=== PATIENT | male | born 1990 | race Caucasian/White ===

== ENCOUNTER 2023-04-11 14:23 | Emergency (ER) | payer OTHER, SELFPAY ==
--- NOTE | ~2023-04-11 | XR_ITS ---
XR foot LT min 3V 04/11/2023 14:51 Indication: 4 views left foot Procedure: No prior studies for comparison. Comparison: No prior studies for comparison. Findings: There is an acute nondisplaced fifth metatarsal fracture. There is a healing fourth metatar vanna fracture with callus formation. Lisfranc joint intact. Mild lateral soft tissue swelling. Impression: 1: Acute nondisplaced midshaft fracture left fifth metatarsal. 2: Healing fourth metatarsal shaft fracture. Reviewed, dictated and finalized at location B. [employer] Impression: 1: Acute nondisplaced midshaft fracture left fifth metatarsal. 2: Healing fourth metatarsal shaft fracture.
[2023-04-11 14:34] VITALS: BP 117/75; PULSE 91; RESP 16; TEMP 36.3; O2SAT 97
--- NOTE | 2023-04-11 14:53 | ED.LOWEXIN ---
HPI - Extremity Injury (Lower) General Chief Complaint: Extremity Injury, Lower Stated Complaint: left foot pain Source: patient Mode of arrival: ambulatory Limitations: no limitations History of Present Illness HPI Narrative: 33-year-old male presents to [facility] with complaint of left foot pain and swelling this started 2 days ago. Patient states his worsening. Patient states broke foot last September, but has not had any problems since November. patient denies new injury. Related Data Home Medications Medication Instructions Recorded Confirmed atorvastatin 80 mg tablet mg 04/11/23 carvedilol 25 mg tablet mg 04/11/23 empagliflozin 25 mg tablet mg 04/11/23 (Jardiance) lisinopril 20 tablet 04/11/23 mg-hydrochlorothiazide 12.5 mg tablet semaglutide 0.25 mg or 0.5 mg (2 mg subcut 04/11/23 mg/1.5 mL) subcutaneous pen injector Allergies Allergy/AdvReac Type Severity Reaction Status Date / Time No Known Allergies Allergy Verified 04/11/23 14:26 Review of Systems Constitutional: Constitutional: Reports no additional constitutional complaints, Denies body ache(s), Denies chills, Denies fatigue, Denies fever(s) and Denies headache(s) Eyes: Eyes: Reports no additional eye complaints and Denies blurry vision ENT: Reports system reviewed and no additional complaints, except as documented, Denies vertigo, Denies dizziness, Denies ear discharge, Denies otalgia, Denies facial pain, Denies headache(s), Denies nasal congestion, Denies nasal discharge, Denies sinus pain, Denies sinus pressure and Denies sore throat Cardiovascular: Cardiovascular: Reports no additional cardiovascular complaints, Denies chest pain, Denies chest pain at rest, Denies rapid heart rate and Denies dyspnea Respiratory: Respiratory: Reports no additional respiratory complaints, Denies chest congestion, Denies cough, Denies pain on inspiration, Denies pain with cough and Denies dyspnea Gastrointestinal: Gastrointestinal: Denies abdominal pain, Denies diarrhea, Denies nausea and Denies vomiting Musculoskeletal: Comments: Right foot pain and swelling Integumentary/Breasts: Skin/Breast: Denies rash Neurologic: Reports system reviewed and no additional complaints, except as documented, Denies vertigo, Denies dizziness and Denies headache(s) Endocrine: Endocrine: Denies fatigue PMFSH Comments At the time of my signature, I reviewed and agree with the nursing past medical, surgical, social, and family history. There is no relevant family history pertinent to the patient complaint. Exam Narrative: Const: General: cooperative, healthy appearing, no acute distress and well nourished Nutritional Appearance: well nourished Orientation/consciousness: patient oriented x3 Limitations: no limitations HENMT: Head: normal to inspection and normocephalic Ears: external ears normal, TM's normal bilaterally, mastoids normal and Abnormal EAC present Face/Nose/Sinus: normal facial exam Face and sinus: normal facial exam Mouth: Yes Normal oral and palatal mucosa present, Yes oropharynx normal and Yes moist mucous membranes Throat: tonsils normal, uvula midline and no uvular edema Eyes: General: appearance normal, both eyes and all related structures Sclera: sclerae normal Pupils: Equal, round and reactive pupils present Resp: Effort & Inspection: normal respiratory effort, able to speak in complete sentences, no audible wheezes, no cough, no respiratory distress and no retractions Cardio: Rate: regular rate Skin: General skin exam: normal color and no rashes or lesions noted Neuro: General: patient oriented x3 Cranial nerves: Yes Equal, round and reactive pupils present Extrem: General: edema right ( posterior leaf of) Other: swelling, tenderness, redness noted to the posterior right Psych: Appearance: grossly normal Mental Status: mental status grossly normal Speech and movement: Normal speech and movement pre
[2023-04-11 14:55] VITALS: BP 117/75; PULSE 91; RESP 16; TEMP 36.3; O2SAT 97
== END 2023-04-11 15:22 | disposition home or self-care (01) ==
PROVIDERS: Emergency Provider Registered Nurse
DX: S92.355A Nondisplaced fracture of fifth metatarsal bone, left foot, initial encounter for closed fracture (principal); X58.XXXA Exposure to other specified factors, initial encounter; E78.00 Pure hypercholesterolemia, unspecified; I10 Essential (primary) hypertension; E11.9 Type 2 diabetes mellitus without complications
CPT/HCPCS: 73630; 99213; G0463